=== PATIENT | female | born 1945 | race Caucasian/White ===

== ENCOUNTER 2020-08-13 16:12 | Emergency (ER) | payer MEDICARE, BC ==
[~2020-08-13] VITALS: Ht 162.6 cm; Wt 49.9 kg
[~2020-08-13 16:12] MED LIST: ATORVASTATIN CA20 MG ORAL
[2020-08-13 16:18] VITALS: BP 177/85
--- NOTE | 2020-08-13 16:28 | NUR ---
ED Nurse Note: Patient from home and walked in due to upper lip laceration. per pt, tripped and fell and hit her face on a cement x4 hours ago. Pt states she knocked her tooth out. Pt unable to remember last tetanus shot. Patient is AAO x4, ambulatory.
[2020-08-13] MEDS ORDERED: Acetaminophen 500mg (ES) tab ORAL ONE (17:00)
[2020-08-13] MEDS ORDERED: Tetanus/Diptheria/Pertussis IM ONE (17:00)
[2020-08-13] MEDS ORDERED: Lidocaine 1% MPF 10mg/ml 5ml ONE (17:26)
--- NOTE | 2020-08-13 17:26 | Diagnostic Imaging Report ---
EXAM: CT Head Without Intravenous Contrast CLINICAL HISTORY: FALL TECHNIQUE: Axial computed tomography images of the head/brain without intravenous contrast. CTDI is 53.4 mGy and DLP is 992.2 mGy-cm. One or more of the following dose reduction techniques were used: automated exposure control, adjustment of the mA and/or kV according to patient size, use of iterative reconstruction technique. COMPARISON: No relevant prior studies available. FINDINGS: Brain: Moderate low-attenuation in the white matter. No hemorrhage. Ventricles: Unremarkable. No ventriculomegaly. Bones/joints: Unremarkable. No acute fracture. Soft tissues: Unremarkable. Sinuses: Unremarkable as visualized. No acute sinusitis. Mastoid air cells: Unremarkable as visualized. No mastoid effusion. IMPRESSION: 1. No acute intracranial pathology. 2. Moderate low-attenuation in the white matter. Nonspecific, but commonly chronic small vessel ischemic disease.
--- NOTE | 2020-08-13 17:27 | NUR ---
ED Nurse Note: cleansed pt's upper lip with sterile water and 4x4's. pt tolerated well. she stated she was walking and not paying attention and tripped and thinks her tooth went through her lip
[2020-08-13] MEDS ORDERED: AUGMENTIN 875-1 EAC1 ORAL (18:00)
[2020-08-13] MEDS ORDERED: TYLENOL EXTRA500 MG ORAL (18:00)
[2020-08-13] MEDS ORDERED: Bacitracin Oint UD TOPIC ONE ×2 (18:03→18:15)
--- NOTE | 2020-08-13 18:08 | NUR ---
ER DISCHARGE NOTE: Patient is cleared to be discharged per ERMD, pt is aox4, on room air, with stable vital signs. pt was given dc and prescription instructions, pt was able to verbalize understanding. pt is able to ambulate with steady gait. pt took all belongings.
--- NOTE | 2020-08-13 19:51 | Emergency Room Report ---
History of Present Illness General Chief Complaint: Laceration Source: Patient Present Illness HPI 75-year-old female presents ED for evaluation. States that she tripped earlier today and fell face forward directly on her face. Knocked out her front tooth. Laceration to her upper lip. Last tetanus unknown. Pain is dull, 7 out of 10, nonradiating. Denies any other injuries. No other aggravating relieving factors. 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 Patient History Past Medical History: DM, HTN Pertinent Family History: none Social History: Denies: smoking, alcohol use, drug use Now: No Immunizations: UTD Reviewed Nursing Documentation: PMH: Agreed; PSxH: Agreed Nursing Documentation-PMH Past Medical History: No History, Except For Hx Hypertension: Yes Hx Diabetes: Yes Review of Systems All Other Systems: negative except mentioned in HPI Physical Exam Vital Signs Date Time Temp Pulse Resp B/P (MAP) Pulse Ox O2 Delivery O2 Flow Rate FiO2 08/13/20 16:18 99.1 88 16 177/85 (115) 95 Room Air Sp02 EP Interpretation: reviewed, normal General Appearance: no apparent distress, alert, GCS 15, non-toxic Head: normocephalic, atraumatic Eyes: bilateral eye normal inspection, bilateral eye PERRL ENT: hearing grossly normal, normal pharynx, no angioedema, normal voice, other - Through and through laceration to upper lip crossing vermilion border. Missing front upper tooth Neck: full range of motion, supple/symm/no masses Respiratory: chest non-tender, lungs clear, normal breath sounds, speaking full sentences Cardiovascular #1: regular rate, rhythm, no edema Cardiovascular #2: 2+ carotid (R), 2+ carotid (L), 2+ radial (R), 2+ radial (L ), 2+ dorsalis pedis (R), 2+ dorsalis pedis (L) Gastrointestinal: normal bowel sounds, non tender, soft, non-distended, no guarding, no rebound Rectal: deferred Genitourinary: normal inspection, no CVA tenderness Musculoskeletal: back normal, normal range of motion, gait/station normal, non-tender Neurologic: alert, motor strength/tone normal, oriented x3, sensory intact, responsive, speech normal Psychiatric: judgement/insight normal, memory normal, mood/affect normal, no suicidal/homicidal ideation Reflexes: 3+ bicep (R), 3+ bicep (L), 3+ tricep (R), 3+ tricep (L), 3+ knee (R), 3+ knee (L) Lymphatic: no adenopathy Procedures Laceration/Wound Repair Laceration/Wound Repair : Consent: Verbal Wound Location: other - Upper lip Wound's Depth, Shape: into muscle Wound Explored: clean Betadine Prep?: Yes Anesthesia: 1% Lidocaine Wound Debrided: minimal Wound Repaired With: sutures Suture Size/Type: nylon, other - Vicryl Layer Closure?: Yes Deep Layer Suture Size/Type: other - Vicryl Sterile Dressing Applied?: No Splint Applied?: No Sling Applied?: No Patient Tolerated: Well Complications: None Medical Decision Making Diagnostic Impression: Primary Impression: Head injury Qualified Codes: S09.90XA - Unspecified injury of head, initial encounter Additional Impression: Lip laceration Qualified Codes: S01.511A - Laceration without foreign body of lip, initial encounter ER Course Hospital Course 75-year-old female presents with missing front tooth, upper lip laceration status post fall with direct injury to face Differential diagnoses include: skull fx, intracranial injury, concussion Clinical course Patient placed on stretcher. After initial history and physical I ordered Tdap, CT head and pain medications CT head shows no acute process. Lip laceration through and through with crossing vermilion border. Vicryl stitches placed to the mucosal surface. Nylon placed above the vermilion border She states she has direct follow-up with dentistry. States that she does have the tooth and it is not lost Patient tolerated procedure without complication. Safe for discharge with close outpatient follow-up care instructions given Diagnosis - head injury, lip laceration Stable and discharged to home with Rx Augmentin, Tylenol. Followup with dentistry. Return to ED in 5 to 7 days for suture removal and wound check CT/MRI/US Diagnostic Results CT/MRI/US Diagnostic Results : Imaging Test Ordered: CT Head Impression Procedure: CT Head no Contrast EXAM: CT Head Without Intravenous Contrast CLINICAL HISTORY: FALL TECHNIQUE: Axial computed tomography images of the head/brain without intravenous contrast. CTDI is 53.4 mGy and DLP is 992.2 mGy-cm. One or more of the following dose reduction techniques were used: automated exposure control, adjustment of the mA and/or kV according to patient size, use of iterative reconstruction technique. COMPARISON: No relevant prior studies available. FINDINGS: Brain: Moderate low-attenuation in the white matter. No hemorrhage. Ventricles: Unremarkable. No ventriculomegaly. Bones/joints: Unremarkable. No acute fracture. Soft tissues: Unremarkable. Sinuses: Unremarkable as visualized. No acute sinusitis. Mastoid air cells: Unremarkable as visualized. No mastoid effusion. IMPRESSION: 1. No acute intracranial pathology. 2. Moderate low-attenuation in the white matter. Nonspecific, but commonly chronic small vessel ischemic disease. Last Vital Signs Date Time Temp Pulse Resp B/P (MAP) Pulse Ox O2 Delivery O2 Flow Rate FiO2 08/13/20 16:18 99.1 88 16 177/85 95 Room Air Status: improved Disposition: HOME, SELF-CARE Condition: Stable Scripts Acetaminophen* (TYLENOL EXTRA STRENGTH*) 500 Mg Tablet 500 MG ORAL Q8H PRN for Prn Headache/Temp > 101, #30 TAB 0 Refills Prov: Cm Cam MD 08/13/20 Amoxicillin/Potassium Clav 875-125* (AUGMENTIN 875-125 TABLET*) 1 Each Tablet 1 TAB ORAL TWICE A DAY, #14 TAB Prov: Cm Cam MD 08/13/20 Patient Instructions: Laceration Care, Adult, [id number] Additional Instructions: return to ED in 5-7 days for wound eval, suture removal Cm Cam MD Aug 13, 2020 19:50
== END 2020-08-13 18:08 | disposition home or self-care (01) ==
LOC: EMR 16:58
DX: S01.511A Laceration without foreign body of lip, initial encounter (principal); S09.90XA Unspecified injury of head, initial encounter; I10 Essential (primary) hypertension; E11.9 Type 2 diabetes mellitus without complications; W01.10XA Fall on same level from slipping, tripping and stumbling with subsequent striking against unspecified object, initial encounter; Y93.9 Activity, unspecified; Y92.9 Unspecified place or not applicable; Z23 Encounter for immunization
CPT/HCPCS: 70450; 90471; 90715; 99284

== ENCOUNTER 2020-08-18 14:36 | Emergency (ER) | payer MEDICARE, BC ==
[~2020-08-18] VITALS: Ht 162.6 cm; Wt 49.9 kg
[~2020-08-18 14:36] MED LIST changes: +AUGMENTIN 875-1 EAC1 ORAL; +TYLENOL EXTRA500 MG ORAL
[2020-08-18 14:55] VITALS: BP 136/61
--- NOTE | 2020-08-18 14:55 | NUR ---
ED Nurse Note: pt here to get stitch out of top of lip
--- NOTE | 2020-08-18 15:07 | Emergency Room Report ---
History of Present Illness General Chief Complaint: Wound Recheck/Suture Removal Source: Patient Present Illness HPI Disclaimer: Please note that this report is being documented using DRAGON technology. This can lead to erroneous entry secondary to incorrect interpretation by the dictating instrument. HPI: 75-year-old female presents for wound recheck. She fell hitting her face and avulsing it 5 days ago. Seen by ER physician placed several Vicryl sutures in the mucosa as well as 1 nylon according to previous notes. Patient states she saw her dentist who put in a retaining stitch over the empty socket. No wound dehiscence or bleeding noted. Appears to be healing well. Came in for suture removal. PMH: Reviewed PSH: Reviewed Allergies: Reviewed Social Hx: Reviewed Allergies: Coded Allergies: No Known Allergies (Verified Allergy, Mild, 01/25/07) COVID-19 Screening Contact w/high risk pt: No Experienced COVID-19 symptoms?: No COVID-19 Testing performed MANAGER PRIMARY: No Nursing Documentation-PMH Past Medical History: No History, Except For Hx Hypertension: Yes Hx Diabetes: Yes Review of Systems All Other Systems: negative except mentioned in HPI Physical Exam Vital Signs Date Time Temp Pulse Resp B/P (MAP) Pulse Ox O2 Delivery O2 Flow Rate FiO2 08/18/20 14:48 98.1 68 17 136/61 (86) 98 Room Air General: Awake and alert, no acute distress HEENT: NC/AT. EOMI. tooth #8 is avulsed. No bleeding. Retaining stitch in place. Through and through laceration through the upper lip is coming together well. Still significant scabbing over the anterior portion. Cannot identify where this nylon stitches. Other sutures appears to have dissolved. Resp: Normal work of breathing Skin: Intact. No abrasions, laceration or rash over the exposed skin MSK: Normal tone and bulk. Moving all extremities. No obvious deformity. Neuro: Awake and alert. Mentating appropriately Medical Decision Making Diagnostic Impression: Primary Impression: Encounter for wound re-check ER Course 74-year-old female presents for wound reevaluation. Nylon stitch that would need to be removed likely buried underneath the scab. I do want to unroofed the scab at this time as the patient is still healing. Other sutures appear to have dissolved. She will return in 3 days for recheck. She understands and agrees with the treatment plan. Last Vital Signs Date Time Temp Pulse Resp B/P (MAP) Pulse Ox O2 Delivery O2 Flow Rate FiO2 08/18/20 14:55 98.1 17 136/61 98 Room Air 08/18/20 14:48 68 Disposition: HOME, SELF-CARE Condition: Stable Patient Instructions: Wound Check Additional Instructions: Return this weekend for reevaluation of your lip wound and suture removal if needed. Travon Haynes MD Aug 18, 2020 15:07
--- NOTE | 2020-08-18 15:17 | NUR ---
ED Nurse Note: pt needs to come back to have another wound recheck in a couple of days
--- NOTE | 2020-08-18 15:22 | NUR ---
ER DISCHARGE NOTE: Patient is cleared to be discharged per ERMD, pt is aox4, on room air, with stable vital signs. pt was given dc instructions, pt was able to verbalize understanding. pt is able to ambulate with steady gait. pt took all belongings.
== END 2020-08-18 15:05 | disposition home or self-care (01) ==
LOC: EMR 15:00
DX: Z09 Encounter for follow-up examination after completed treatment for conditions other than malignant neoplasm (principal); S01.511D Laceration without foreign body of lip, subsequent encounter; I10 Essential (primary) hypertension; E11.9 Type 2 diabetes mellitus without complications; W01.0XXD Fall on same level from slipping, tripping and stumbling without subsequent striking against object, subsequent encounter
CPT/HCPCS: 99281

== ENCOUNTER 2020-08-21 09:18 | Emergency (ER) | payer MEDICARE, BC ==
[~2020-08-21] VITALS: Ht 162.6 cm; Wt 49.9 kg
[2020-08-21 09:36] VITALS: BP 159/69
--- NOTE | 2020-08-21 09:38 | NUR ---
pt arrived for suture removal. pt states she has sutures placed after fall. no wound noted. pt has 2 dissolvable sutures in inner lip area. no suture noted on outer upper lip. cleared by md for discharge. verbalized discharge instructions. pt A&Ox4, ambulatory, stable.
--- NOTE | 2020-08-21 09:39 | Emergency Room Report ---
History of Present Illness General Chief Complaint: Wound Recheck/Suture Removal Source: Patient Present Illness HPI Disclaimer: Please note that this report is being documented using DRAGON technology. This can lead to erroneous entry secondary to incorrect interpretation by the dictating instrument. HPI: 75-year-old female presents for wound reevaluation and suture removal. Patient had a facial laceration and tooth avulsion 3 weeks ago. She was here 3 days ago seen by me but I could not find the nylon stitch that was put into the vermilion border. It was covered by a scab at this time. Scab is now fallen off and still the patient cannot find the filament. No other concerns at this time. Finished a course of antibiotics today. Following up with dentistry regularly. No other complaints at this time. PMH: Reviewed PSH: Reviewed Allergies: Reviewed Social Hx: Reviewed Allergies: Coded Allergies: No Known Allergies (Verified , 08/21/20) COVID-19 Screening Contact w/high risk pt: No Experienced COVID-19 symptoms?: No COVID-19 Testing performed COATING OPERATOR: No Nursing Documentation-PMH Past Medical History: No History, Except For Hx Hypertension: Yes Hx Diabetes: Yes Review of Systems All Other Systems: negative except mentioned in HPI Physical Exam Vital Signs Date Time Temp Pulse Resp B/P (MAP) Pulse Ox O2 Delivery O2 Flow Rate FiO2 08/21/20 09:21 99.0 69 18 173/73 (106) 100 Room Air General: Awake and alert, no acute distress HEENT: NC/AT. EOMI. healing lip laceration. 2 Vicryls seen in the mucosal inner lip. Wound appears to be coming together well. No bleeding. No signs of infection. I cannot find the nylon thread reportedly in the upper lip. Sutures over the socket of tooth #8 are intact. Mild bruising around the lip. Resp: Normal work of breathing Skin: Intact. No abrasions, laceration or rash over the exposed skin MSK: Normal tone and bulk. Moving all extremities. No obvious deformity. Neuro: Awake and alert. Mentating appropriately Medical Decision Making Diagnostic Impression: Primary Impression: Encounter for wound re-check ER Course 75-year-old female presents again for wound reevaluation and suture removal. I cannot find the nylon stitch at which may have fallen out or is now underneath the skin. I have unroofed the scab which had partially fallen off already. No signs of infection. Patient will follow up as needed. If she should find the stitch she is instructed to return for removal. Otherwise will follow up with dentistry as scheduled. Instructed to return with new or worsening symptoms. She understands and agrees with treatment plan. Last Vital Signs Date Time Temp Pulse Resp B/P (MAP) Pulse Ox O2 Delivery O2 Flow Rate FiO2 08/21/20 09:21 99.0 69 18 173/73 (106) 100 Room Air Disposition: HOME, SELF-CARE Condition: Stable Referrals: NON PHYSICIAN (PCP) Additional Instructions: Please follow-up with your primary care doctor in the next 1 to 3 days to discuss this emergency department visit and for reevaluation. If you have any new or worsening symptoms please return to the emergency department for reevaluation. Please note that this report is being documented using [employer]ilo[employer] technology. This can lead to erroneous entry secondary to incorrect interpretation by the dictating instrument. Travon Haynes MD Aug 21, 2020 09:39
== END 2020-08-21 09:41 | disposition home or self-care (01) ==
LOC: EMR 09:31
DX: S01.511A Laceration without foreign body of lip, initial encounter (principal); E11.9 Type 2 diabetes mellitus without complications; I10 Essential (primary) hypertension; X58.XXXA Exposure to other specified factors, initial encounter; Y92.9 Unspecified place or not applicable
CPT/HCPCS: 99281